=== PATIENT | female | born 2000 | race Hispanic/Latino ===

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

== ENCOUNTER 2022-07-05 13:47 | Emergency (ER) | payer BC ==
[~2022-07-05] VITALS: Ht 162.6 cm; Wt 64.5 kg
[~2022-07-05 13:47] MED LIST: NAPROSYN500 MG PO
[2022-07-05] MEDS ORDERED: SODIUM CHLORIDE 0.9% 1000ML 1,000 ML IV STA (14:12)
[2022-07-05] MEDS ORDERED: KETOROLAC TROMETHAMINE 30 MG/ML VIAL IV ONE (14:15)
[2022-07-05] MEDS ORDERED: ONDANSETRON HCL INJ 2MG/ML 2ML 2 MG/ML VIAL IV ONE (14:15)
[2022-07-05] MEDS ORDERED: FAMOTIDINE 20 MG/2 ML VIAL IV ONE ×2 (14:15→15:06)
[2022-07-05] MEDS ORDERED: BACTRIM DS TAB1 EACH PO (14:26)
[2022-07-05] MEDS ORDERED: SODIUM CHLORIDE 0.9% 1000ML 1,000 ML ONE (15:06)
[2022-07-05] MEDS ORDERED: KETOROLAC TROMETHAMINE 30 MG/ML VIAL ONE (15:06)
[2022-07-05] MEDS ORDERED: ONDANSETRON HCL INJ 2MG/ML 2ML 2 MG/ML VIAL ONE (15:06)
[2022-07-05] MEDS ORDERED: IOPAMIDOL 370 MG/ML 100 ML INFUS..BTL INJ ONE (15:17)
[2022-07-05] MEDS ORDERED: CEFTRIAXONE 1 GM VIAL IV ONE (16:00)
[2022-07-05] MEDS ORDERED: FAMOTIDINE20 MG PO (16:01)
[2022-07-05] MEDS ORDERED: ONDANSETRON ODT4 MG PO (16:01)
[2022-07-05] MEDS ORDERED: CEFDINIR300 MG PO (16:01)
[2022-07-05] MEDS ORDERED: CEFTRIAXONE 1 GM VIAL ONE (16:15)
[2022-07-06] MEDS ORDERED: CEFPODOXIME PR100 MG PO (22:08)
== END 2022-07-05 16:14 | disposition home or self-care (01) ==
LOC: FSED 13:52
DX: R00.2 Palpitations (principal); R00.0 Tachycardia, unspecified; R42 Dizziness and giddiness; B34.9 Viral infection, unspecified; N39.0 Urinary tract infection, site not specified; R51.9 Headache, unspecified; R11.0 Nausea; R94.31 Abnormal electrocardiogram [ECG] [EKG]
CPT/HCPCS: 71046; 71260; 80053; 81003; 81025; 82553; 84484; 85025; 85379; 87400; 93005; 96374; 96375; 99284; J0696; J1885; J2405; J7030; Q9967

== ENCOUNTER 2022-07-06 17:46 | Emergency (ER) | payer BC ==
[~2022-07-06] VITALS: Ht 162.6 cm; Wt 64.4 kg
[~2022-07-06 17:46] MED LIST changes: +BACTRIM DS TAB1 EACH PO; +CEFDINIR300 MG PO; +FAMOTIDINE20 MG PO; +ONDANSETRON ODT4 MG PO
[2022-07-06] MEDS ORDERED: CEFTRIAXONE 1 GM VIAL IV STA (19:12)
[2022-07-06] MEDS ORDERED: SODIUM CHLORIDE 0.9% 1000ML 1,000 ML IV ONE (19:15)
[2022-07-06] MEDS ORDERED: ONDANSETRON HCL INJ 2MG/ML 2ML 2 MG/ML VIAL IV STA (19:19)
[2022-07-06] MEDS ORDERED: ACETAMINOPHEN 325 MG TAB PO ONE (19:30)
[2022-07-06 19:33] LABS: HEMATOCRIT 39.2 % (34.2-44.1); HEMOGLOBIN 13.6 g/dL (12.0-16.0); LYMPHOCYTES # (AUTO) 0.9 (1.0-3.2); LYMPHOCYTES % 26.2 % (18.0-39.1); MEAN CORPUSCULAR HEMOGLOBIN 31.6 pg (28-32); MEAN CORPUSCULAR HGB CONC 34.7 g/dL (31-35); MONOCYTES # (AUTO) 0.4 (0.2-0.8); MONOCYTES % 10.6 % (4.4-11.3); NEUTROPHILS # (AUTO) 2.1 (2.1-6.9); NEUTROPHILS % 62.9 % (38.7-80.0); PLATELET COUNT 249 x10e3/uL (140-360); RED BLOOD COUNT 4.31 x10e6/uL (3.6-5.1); RED CELL DISTRIBUTION WIDTH 11.5 % (11.7-14.4)
[2022-07-06 19:49] LABS: INR 1.02; PROTHROMBIN TIME 13.6 seconds (11.9-14.5)
[2022-07-06 19:50] LABS: PARTIAL THROMBOPLASTIN TIME 31.9 seconds (23.8-35.5)
[2022-07-06 19:59] LABS: ALANINE AMINOTRANSFERASE 26 IU/L (0-55); ALBUMIN 3.6 g/dL (3.5-5.0); ALBUMIN/GLOBULIN RATIO 0.8 (0.8-2.0); ALKALINE PHOSPHATASE 59 IU/L (40-150); ANION GAP 15.7 mmol/L (8-16); BLOOD UREA NITROGEN < 5 mg/dL (7-26); CALCIUM 9.3 mg/dL (8.4-10.2); CARBON DIOXIDE 23 mmol/L (22-29); CHLORIDE 101 mmol/L (98-107); CREATININE, SERUM 0.81 mg/dL (0.57-1.11); GLUCOSE 114 mg/dL (74-118); POTASSIUM 3.7 mmol/L (3.5-5.1); SODIUM 136 mmol/L (136-145)
[2022-07-06 20:00] LABS: BUN/CREATININE RATIO 6 (6-25)
[2022-07-06 20:15] LABS: CLARITY,URINE CLEAR (CLEAR); COLOR,URINE YELLOW (YELLOW); KETONES,URINE NEGATIVE (NEGATIVE); LEUKOCYTE ESTERASE ,URINE NEGATIVE (NEGATIVE); NITRITE,URINE NEGATIVE (NEGATIVE); PROTEIN,URINE DIPSTICK NEGATIVE (NEGATIVE); URINE UROBILINOGEN 1 mg/dL (0.2 - 1)
[2022-07-06 20:54] LABS: BACTERIA,URINE MANY /HPF; WBC,URINE (MAN) 21-50 /HPF (0-5)
[2022-07-06 20:55] LABS: EPITHELIAL CELLS,URINE MODERATE /LPF
[2022-07-06 20:56] LABS: MUCUS,URINE MANY (RARE)
[2022-07-06] MEDS ORDERED: CEFPODOXIME PR100 MG PO (22:08)
== END 2022-07-06 23:00 | disposition home or self-care (01) ==
LOC: ER 18:30
DX: R50.9 Fever, unspecified (principal); N39.0 Urinary tract infection, site not specified; R30.0 Dysuria; R11.0 Nausea; Z20.822 Contact with and (suspected) exposure to COVID-19
CPT/HCPCS: 36415; 71045; 80053; 81001; 83605; 84702; 85025; 85610; 85730; 87040; 87086; 99283; J0696; J2405; J7030; U0002